=== PATIENT | male | born 1965 | race Caucasian/White ===

== ENCOUNTER 2017-01-09 10:41 | Emergency (ER) | payer BC, OTHER ==
--- NOTE | 2017-01-09 10:56 | Emergency Department Record ---
History of Present Illness - General Chief Complaint: Difficulty Breathing Stated Complaint: COUGHING/CHILLS/FEVER Time Seen by Provider: 01/09/17 10:53 Source: Patient Mode of Arrival: Ambulatory Limitations: No limitations - History of Present Illness Initial Comments: The patient is here due to a one week hx of cough, congestion, colored sputum production and SOB off and on. He has a hx of COPD and still does smoke a pack a day of tobacco. The patient denies any CP, back pain, AP or vomiting. He was seen in the [facility] this AM and was referred to the ER for treatment due to his O2 saturations being borderline. MD Complaint: Cough, Shortness of breath Onset/Timin -: Week(s) Known History Of: COPD Associated Symptoms: Cough, Sputum production Treatments Prior to Arrival: Bronchodilator - Related Data Previous Rx's Medication Instructions Recorded Azithromycin [Zithromax] 250 mg PO ASDIR #6 tab 01/09/17 Prednisone [Prednisone 20Mg] 40 mg PO DAILY #8 tab 01/09/17 Allergies Allergy/AdvReac Type Severity Reaction Status Date / Time codeine AdvReac Intermediate hyperactive Verified 01/09/17 10:53 Travel Screening - Travel/Exposure Within Last 30 Days Have you traveled within the last 30 days?: Yes Location Detail:: [place] - Travel/Exposure Within Last Year Have you traveled outside the [place] in the last year?: No - Additonal Travel Details Have you been exposed to anyone with a communicable illness?: No - Travel Symptoms Symptom Screening: None Review of Systems Constitutional: Denies: Chills, Fever Eyes: Denies: Eye discharge ENT: Reports: Congestion Respiratory: Reports: Cough, Dyspnea, Wheezes. Denies: Hemoptysis Cardiovascular: Denies: Arrhythmia, Chest pain Endocrine: Denies: Fatigue Gastrointestinal: Denies: Nausea Genitourinary: Denies: Dysuria Musculoskeletal: Denies: Arthralgia Past Medical History - SOCIAL HISTORY Smoking Status: Current every day smoker Alcohol Use: None Drug Use: Occasional Drug Use Detail:: Marijuana - RESPIRATORY Hx Respiratory Disorders: Yes Hx Asthma: Yes - CARDIOVASCULAR Hx Cardio Disorders: No - NEURO Hx Neuro Disorders: No - GI Hx GI Disorders: No - Hx Genitourinary Disorders: No - ENDOCRINE Hx Endocrine Disorders: No - MUSCULOSKELETAL Hx Musculoskeletal Disorders: Yes Comment:: DJD - PSYCH Hx Psych Problems: No - HEMATOLOGY/ONCOLOGY Hx Hematology/Oncology Disorders: No Family Medical History Any Significant Family History?: No Physical Exam - General General Appearance: Alert, Oriented x3, Cooperative, No acute distress - Head Head exam: Atraumatic, Normocephalic, Normal inspection - Eye Eye exam: Normal appearance, PERRL - ENT Throat exam: Normal inspection. negative: Tonsillar erythema, Tonsillar exudate - Neck Neck exam: Normal inspection, Full ROM. negative: Tenderness - Respiratory Respiratory exam: Rhonchi (bilaterally mildly.), Wheezes (bilaterally mildly.). negative: Normal lung sounds bilaterally, Accessory muscle use (The patient is speaking in full sentences with no GRACE or SOB.), Decreased breath sounds, Respiratory distress - Cardiovascular Cardiovascular Exam: Regular rate, Normal rhythm, Normal heart sounds - GI/Abdominal GI/Abdominal exam: Soft, Normal bowel sounds. negative: Tenderness - Extremities Extremities exam: Normal inspection, Full ROM, Normal capillary refill. negative: Tenderness - Neurological Neurological exam: Alert, Normal gait. negative: Abnormal gait, Motor sensory deficit Course Vital Signs 01/09/17 10:48 Temperature 98.2 F Pulse Rate 112 H Respiratory 24 Rate Blood Pressure 124/102 Pulse Ox 94 L - Reevaluation(s) Reevaluation #1: The patient is doing better at this time. He is resting comfortably and is breathing normally with no SOB. His RA biox is 95-96%. 01/09/17 11:34 Reevaluation #2: The patient is doing much better at this time. His RA biox is 96% and his lung sounds are much improved. There is presently no wheezing and only mild rhonchi. He does feel comfortably going home with F/U early next week with his PCP. 01/09/17 12:24 Reevaluation #3: The patient is doing very well at this time. He denies any pain or discomfort. On exam his lung aeration is good with only very mild wheezes at the bases. He does feel comfortable going home. His RA biox is 95% presently. I did contact Emperatriz MIGUEL) who sent the patient here to the ER from the [facility]. She agrees with the plan to discharge and she will have the patient return to the clinic early next week. 01/09/17 13:29 01/09/17 13:53 Medical Decision Making - Lab Data Result diagrams: 01/09/17 11:06 01/09/17 11:06 Disposition Disposition: Discharge Clinical Impression: COPD exacerbation Disposition: Home, Self-Care Condition: (1) Good Instructions: COPD (Chronic Obstructive Pulmonary Disease) (ED) Additional Instructions: Please continue your regular medicines and start the Zpak as directed along with the short course of Prednisone. Continue your home inhallers. Please see your PCP early next week for recheck and return to the ER for any increased cough, any fever, or any worsening SOB. Prescriptions: Azithromycin [Zithromax] 250 mg PO ASDIR #6 tab Prednisone [Prednisone 20Mg] 40 mg PO DAILY #8 tab Forms: Patient Portal Access Time of Disposition: 12:41 Quality - Quality Measures Quality Measures: N/A - Blood Pressure Screening View Details: Yes Does Patient Have Any of the Following: No Blood Pressure Classification: Pre-Hypertensive BP Reading Systolic Measurement: 122 Diastolic Measurement: 82 Screening for High Blood Pressure: < Pre-Hypertensive BP, F/U Documented > [ G8950] Pre-Hypertensive Follow-up Interventions: Referral to alternative/primary care provider.
[2017-01-09] MEDS ORDERED: IPRATROPIUM/ALBUTEROL (0.5MG/3MG) NEB INH ONE (10:58)
[2017-01-09] MEDS ORDERED: METHYLPREDNISOLONE PF 125MG/VIAL IVP ONE (11:00)
[2017-01-09] MEDS ORDERED: 0.9 % SODIUM CHLORIDE 1,000 ML BAG IV ONE (11:05)
[2017-01-09 11:15] LABS: BASO % 0.3 % (0-6); EOS % 3.1 % (0-6); GRAN % 71.9 % (47-80); HEMATOCRIT 46.6 % (42.0-52.0); LYMPH % 13.1 % (16-45); MEAN CELL VOLUME 83.4 fl (81-97); MEAN CORPUSCULAR HEMOGLOBIN 28.6 pg (27-33); MEAN CORPUSCULAR HGB CONC 34.3 g/dl (32-36); MONO % 11.6 % (0-9); PLATELET COUNT 337 K/uL (130-400); RED BLOOD COUNT 5.59 M/uL (4.40-5.70); RED CELL DISTRIBUTION WIDTH 14.4 % (11.5-14.5); WHITE BLOOD COUNT W/O DIFF 8.7 K/uL (4.2-12.2)
[2017-01-09 11:29] LABS: ALB/GLOB RATIO 1.9 (1.1-1.8); ALBUMIN 4.7 gm/dL (3.5-5.0); ALKALINE PHOSPHATASE 74 U/L (38-126); ALT/SGPT 43 U/L (21-72); ANION GAP 14.5 (7-16); AST/SGOT 23 U/L (17-59); BILIRUBIN,TOTAL 0.73 mg/dL (0.2-1.3); BLOOD UREA NITROGEN 10 mg/dL (9-20); CARBON DIOXIDE 23.5 mmol/L (22-30); CREATININE 0.9 mg/dL (0.66-1.25); EST GLOMERULAR FILTRATION RATE > 60 ml/min; GLUCOSE,RANDOM 141 mg/dL (70-110); TOTAL PROTEIN 7.2 gm/dL (6.3-8.2)
[2017-01-09] MEDS ORDERED: CEFTRIAXONE SODIUM 1 GM in 0.9 % SODIUM CHLORIDE 100ML 100 ML IVPB ONE (12:22)
[2017-01-09] MEDS ORDERED: ALBUTEROL SULFATE (0.083%) 2.5 MG/3 ML NEB INH ONE (12:36)
--- NOTE | 2017-01-10 07:48 | RADIOLOGY REPORT ---
EXAM: CHEST, TWO VIEWS HISTORY: ACUTE DIFFUSE CHEST PAIN, NONPRODUCTIVE COUGH. TECHNIQUE: Two views of the chest were obtained. Comparison: Chest x-ray 01/25/13. FINDINGS: The lungs are clear. The cardiac silhouette, diaphragm, and osseous structures are unremarkable. IMPRESSION: NO ACUTE INTRATHORACIC PROCESS WITH NO INTERVAL CHANGE. JOB NUMBER: [id number] MTDD
== END 2017-01-09 13:54 | disposition home or self-care (01) ==
LOC: ER 10:41
DX: J44.1 Chronic obstructive pulmonary disease with (acute) exacerbation (principal); R06.02 Shortness of breath; F17.210 Nicotine dependence, cigarettes, uncomplicated
CPT/HCPCS: 71020; 80053; 85025; 94640; 96365; 96375; 99284; J2930; J7030; J7613

== ENCOUNTER 2018-12-02 13:01 | Emergency (ER) | payer BC ==
[2018-12-02] MEDS ORDERED: ASPIRIN 81 MG CHEWABLE TABLET PO ONE (13:10)
[2018-12-02] MEDS ORDERED: 0.9 % SODIUM CHLORIDE 1000ML 1,000 ML IV PRN (13:10)
[2018-12-02] MEDS ORDERED: NITROGLYCERIN 0.4MG SL TABLET #25 BTL SL PRN (13:10)
--- NOTE | 2018-12-02 13:16 | Emergency Department Record ---
History of Present Illness - General Chief Complaint: Chest Pain Stated Complaint: CHEST PAIN Time Seen by Provider: 12/02/18 13:08 Source: Patient, RN notes reviewed Mode of Arrival: Ambulatory - History of Present Illness Initial Comments: chest pain started 3 days ago and pressure in the chest and numbness in the left arm. SOB and using his proair every 3 hours and advair and spiriva and some coughing. Smokes cigs 1ppd. Patient has epigastric pain which radiates into his back. PMH DM type 2 for 2 years ,copd , tobacco use , Primary Ileana Karimi hypothyroidism Complaint: Chest pain Onset/Timin -: Days(s) Onset: During rest Pain Location: Left chest, Epigastric Severity: Moderate Severity scale (1-10): 6 Quality: Heaviness Consistency: Intermittent Worsens With: Exertion Anginal Symptoms: Diaphoresis, Dyspnea, Nausea - Related Data Home Medications Medication Instructions Recorded Confirmed Last Taken Olanzapine 10 mg PO DAILY 12/02/18 12/02/18 12/02/18 Allergies Allergy/AdvReac Type Severity Reaction Status Date / Time codeine AdvReac Intermediate hyperactive Verified 12/02/18 13:08 gabapentin AdvReac Intermediate bad Verified 12/02/18 13:08 dreams, crazy thoughts Review of Systems Reviewed: No additional complaints except as noted below Constitutional: Reports: As per HPI. Denies: Chills, Fever, Malaise, Night sweats, Weakness, Weight change Eyes: Reports: As per HPI. Denies: Eye discharge, Eye pain, Photophobia, Vision change ENT: Reports: As per HPI. Denies: Congestion, Dental pain, Ear pain, Epistaxis, Hearing loss, Throat pain Respiratory: Reports: As per HPI, Dyspnea. Denies: Cough, Hemoptysis, Stridor, Wheezes Cardiovascular: Reports: As per HPI, Chest pain. Denies: Arrhythmia, Dyspnea on exertion, Edema, Murmurs, Orthopnea, Palpitations, Paroxysmal nocturnal dyspnea, Rheumatic Fever, Syncope Endocrine: Reports: As per HPI. Denies: Fatigue, Heat or cold intolerance, Polydipsia, Polyuria Gastrointestinal: Reports: As per HPI. Denies: Abdominal pain, Constipation, Diarrhea, Hematemesis, Hematochezia, Melena, Nausea, Vomiting Genitourinary: Reports: As per HPI. Denies: Dysuria, Frequency, Hematuria, Inco ntinence, Retention, Testicular pain, Testicular mass, Urgency Musculoskeletal: Reports: As per HPI. Denies: Arthralgia, Back pain, Gout, Joint swelling, Myalgia, Neck pain Skin: Reports: As per HPI. Denies: Bruising, Change in color, Change in saurabh r/nails, Lesions, Pruritus, Rash Neurological: Reports: As per HPI. Denies: Abnormal gait, Confusion, Headache, Numbness, Paresthesias, Seizure, Tingling, Tremors, Vertigo, Weakness Psychiatric: Reports: As per HPI. Denies: Anxiety, Auditory hallucinations, Depression, Homicidal thoughts, Suicidal thoughts, Visual hallucinations Hematological/Lymphatic: Reports: As per HPI. Denies: Anemia, Blood Clots, Easy bleeding, Easy bruising, Swollen glands Past Medical History - SOCIAL HISTORY Smoking Status: Current every day smoker Drug Use: Occasional Drug Use Detail:: Marijuana - RESPIRATORY Hx Respiratory Disorders: Yes Hx Asthma: Yes - CARDIOVASCULAR Hx Cardio Disorders: No - NEURO Hx Neuro Disorders: No - GI Hx GI Disorders: No - Hx Genitourinary Disorders: No - ENDOCRINE Hx Endocrine Disorders: No - MUSCULOSKELETAL Hx Musculoskeletal Disorders: Yes Comment:: DJD - PSYCH Hx Psych Problems: No - HEMATOLOGY/ONCOLOGY Hx Hematology/Oncology Disorders: No Physical Exam - General General Appearance: Alert, Oriented x3, Cooperative, No acute distress - Head Head exam: Normal inspection - Eye Eye exam: Normal appearance, PERRL Pupils: Normal accommodation - ENT ENT exam: Normal exam, Mucous membranes moist, Normal external ear exam, Normal orophraynx, TM's normal bilaterally Ear exam: Normal external inspection. negative: External canal tenderness Nasal Exam: Normal inspection. negative: Discharge, Sinus tenderness Mouth exam: Normal external inspection, Tongue normal Teeth exam: Normal inspection. negative: Dental caries Throat exam: Normal inspection. negative: Tonsillar erythema, Tonsillar exudate - Neck Neck exam: Normal inspection, Full ROM. negative: Tenderness - Respiratory Respiratory exam: Normal lung sounds bilaterally. negative: Respiratory distress - Cardiovascular Cardiovascular Exam: Regular rate, Normal rhythm, Normal heart sounds - GI/Abdominal GI/Abdominal exam: Soft, Normal bowel sounds. negative: Tenderness - Rectal Rectal exam: Deferred - exam: Deferred - Extremities Extremities exam: Normal inspection, Full ROM, Normal capillary refill. negative: Tenderness - Back Back exam: Reports: Normal inspection, Full ROM. Denies: Muscle spasm, Rash noted, Tenderness - Neurological Neurological exam: Alert, Normal gait, Oriented X3, Reflexes normal - Psychiatric Psychiatric exam: Normal affect, Normal mood - Skin Skin exam: Dry, Intact, Normal color, Warm Course - Reevaluation(s) Reevaluation #1: Transfer to [facility] to Dr Garcia for cardiac evaluation. Discussed case with Dr Garcia and will transfer 12/02/18 15:27 12/02/18 15:32 Medical Decision Making - Data Complexity MDM Data: Labs Ordered and/or Reviewed (wbc 14,600), X-Ray Ordered and/or Reviewed (chest xray negative for acute changes), EKG Ordered and/or Reviewed (NSR , no acute changes) - Lab Data Result diagrams: 12/02/18 13:08 12/02/18 13:08 Disposition Clinical Impression: Angina at rest Chest pain Qualifiers: Chest pain type: unspecified Qualified Code(s): R07.9 - Chest pain, unspecified Disposition: Acute Care Hospital Transfer Condition: (2) Stable Forms: Patient Portal Access Time of Disposition: 15:24 Quality - Quality Measures Quality Measures: N/A - Blood Pressure Screening Does Patient Have Any of the Following: No Blood Pressure Classification: Hypertensive Reading Systolic Measurement: 131 Diastolic Measurement: 100 Screening for High Blood Pressure: < First Hypertensive BP, F/U Documented > [G8950] First Hypertensive Follow-up Interventions: Referral to alternative/primary care provider.
[2018-12-02 13:20] LABS: ABSOLUTE NEUTROPHIL COUNT 10.77; BASO % 0.3 % (0-6); EOS % 1.5 % (0-6); GRAN % 73.9 % (47-80); HEMATOCRIT 51.4 % (42.0-52.0); HEMOGLOBIN 17.9 gm/dl (14.0-18.0); LYMPH % 15.5 % (16-45); MEAN CELL VOLUME 80.4 fl (81-97); MEAN CORPUSCULAR HGB CONC 34.8 g/dl (32-36); MEAN PLATELET VOLUME 9.8 fl (7.4-10.4); MONO % 8.8 % (0-9); PLATELET COUNT 413 K/uL (130-400); RED BLOOD COUNT 6.39 M/uL (4.40-5.70); RED CELL DISTRIBUTION WIDTH 14.2 % (11.5-14.5); WHITE BLOOD COUNT W/O DIFF 14.6 K/uL (4.2-12.2)
[2018-12-02 13:30] LABS: BLOOD UREA NITROGEN 15 mg/dL (6-20); CREATININE 1.1 mg/dL (0.7-1.2); EST GLOMERULAR FILTRATION RATE > 60 mL/min
[2018-12-02 13:33] LABS: GLUCOSE,RANDOM 194 mg/dL (74-109)
[2018-12-02 13:34] LABS: INR 1.1; PARTIAL THROMBOPLASTIN TIME 32.4 SECONDS (24.5-39.1); PROTHROMBIN TIME (PATIENT) 11.1 SECONDS (9.5-12.1)
[2018-12-02 13:47] LABS: LIPASE 28 U/L (13-60); TOTAL PROTEIN 7.2 g/dL (6.6-8.7)
[2018-12-02 13:52] LABS: ALBUMIN 4.5 g/dL (4.0-5.0); ALKALINE PHOSPHATASE 82 U/L (40-129); ALT/SGPT 24 U/L (<41); AST/SGOT 17 U/L (10.0-50.0); BILIRUBIN,DIRECT < 0.2 mg/dL (0-0.3)
--- NOTE | 2018-12-04 08:30 | RADIOLOGY REPORT ---
STUDY: Chest 1 view. CLINICAL HISTORY: Sternal chest pain for 2 days. bilateral upper extremity numbness. TECHNIQUE: Two upright portable views of the chest are obtained. COMPARISON: Two-view chest radiographic examination dated 01/09/2017. FINDINGS: The cardiomediastinal silhouette is normal in size and configuration. The pulmonary vasculature is nondilated. The lungs and pleural spaces appear clear. No acute osseous abnormality. IMPRESSION: No radiographic evidence of acute cardiopulmonary disease without significant change since 01/09/2017. MTDD
== END 2018-12-02 17:05 | disposition short-term general hospital (02) ==
LOC: ER 13:01
DX: I20.0 Unstable angina (principal); R20.0 Anesthesia of skin; R06.02 Shortness of breath; R11.0 Nausea; E11.9 Type 2 diabetes mellitus without complications; E03.9 Hypothyroidism, unspecified; F17.210 Nicotine dependence, cigarettes, uncomplicated
CPT/HCPCS: 71045; 80048; 80076; 83690; 84484; 85025; 85379; 85610; 85730; 93005; 93010; 99285